=== PATIENT | male | born 1995 | race Two or more races ===

== ENCOUNTER 2024-12-23 15:28 | Emergency (ER) | payer OTHER ==
[~2024-12-23] VITALS: Ht 172.7 cm; Wt 86.0 kg
[2024-12-23 15:43] LABS: COVID AG,FIA SOURCE NASAL SWAB
[2024-12-23 16:04] LABS: RAPID GROUP A STREP NEGATIVE (NEGATIVE)
[2024-12-23 16:12] LABS: SARS-COV2 (COVID) ANTIGEN,FIA Negative (Negative)
[2024-12-23 16:13] LABS: INFLUENZA TYPE A NEGATIVE FOR TYPE A (NEGATIVE); INFLUENZA TYPE B NEGATIVE FOR TYPE B (NEGATIVE)
[2024-12-23] MEDS ORDERED: GUAIF600 PO (16:26)
[2024-12-23] MEDS ORDERED: IBUP-1493 PO (16:26)
[2024-12-23 16:50] VITALS: BP 110/62; PULSE 75; RESP 17; TEMP 97.9; O2SAT 99
== END 2024-12-23 17:49 | disposition home or self-care (01) ==
LOC: EMS 15:28
DX: J06.9 Acute upper respiratory infection, unspecified (principal); R05.9 Cough, unspecified; R09.81 Nasal congestion; Z20.822 Contact with and (suspected) exposure to COVID-19
CPT/HCPCS: 87430; 87804; 99283